=== PATIENT | female | born 1940 | race Caucasian/White ===

== ENCOUNTER 2022-11-22 06:23 | Observation (INO) | payer MEDICARE, OTHER, SELFPAY ==
[2022-11-22 06:25] VITALS: BP 168/81; PULSE 63; RESP 20; TEMP 36.5; O2SAT 96; BMI 23.3
--- NOTE | 2022-11-22 06:28 | CTR_ITS ---
PROCEDURE INFORMATION: Exam: CT Head Without Contrast Exam date and time: 11/22/2022 6:40 AM Age: 82 years old Clinical indication: Other: Unable to sit up; Additional info: Weakness TECHNIQUE: Imaging protocol: Computed tomography of the head without contrast. Radiation optimization: All CT scans at this facility use at least one of these dose optimization techniques: automated exposure control; mA and/or kV adjustment per patient size (includes targeted exams where dose is matched to clinical indication); or iterative reconstruction. REPORTING DATA: Count of CT and Cardiac NM exams in prior 12 months: This patient has received 0 known CTs and 0 known cardiac nuclear medicine studies in the 12 months prior to the current study. COMPARISON: No relevant prior studies available. RADIATION DOSE METRICS: Total DLP (mGy-cm): 1041 FINDINGS: Brain: Normal. No hemorrhage. Mild periventricular white matter changes. No mass effect. Cerebral ventricles: No ventriculomegaly. Paranasal sinuses: Visualized sinuses are unremarkable. No fluid levels. Mastoid air cells: Visualized mastoid air cells are well aerated. Bones/joints: Unremarkable. No acute fracture. Soft tissues: Unremarkable. CT/CT head wo con* [id number] IMPRESSION: No acute intracranial abnormality.
--- NOTE | 2022-11-22 06:28 | CTR_ITS ---
PROCEDURE INFORMATION: Exam: CTA Head With Contrast, Arteriography Exam date and time: 11/22/2022 6:44 AM Age: 82 years old Clinical indication: Other: Unable to sit up; Additional info: Weakness TECHNIQUE: Imaging protocol: Computed tomographic angiography of the head with contrast. Exam focused on the arteries. 3D rendering (Not supervised by radiologist): MIP and/or 3D reconstructed images were created by the technologist. Radiation optimization: All CT scans at this facility use at least one of these dose optimization techniques: automated exposure control; mA and/or kV adjustment per patient size (includes targeted exams where dose is matched to clinical indication); or iterative reconstruction. Contrast material: OMNI 350; Contrast volume: 100 ml; Contrast route: INTRAVENOUS (IV); REPORTING DATA: Count of CT and Cardiac NM exams in prior 12 months: This patient has received 0 known CTs and 0 known cardiac nuclear medicine studies in the 12 months prior to the current study. COMPARISON: CT head wo con* [id number] 11/22/2022 6:40 AM RADIATION DOSE METRICS: Total DLP (mGy-cm): 354.18 FINDINGS: ANTERIOR CIRCULATION: Right internal carotid artery: Intracranial segment is patent with no significant stenosis. No aneurysm. Right middle cerebral artery: No occlusion or significant stenosis. No aneurysm. Right anterior cerebral artery: No occlusion or significant stenosis. No aneurysm. Left internal carotid artery: Intracranial segment is patent with no significant stenosis. No aneurysm. Left middle cerebral artery: No occlusion or significant stenosis. No aneurysm. Left anterior cerebral artery: No occlusion or significant stenosis. No aneurysm. POSTERIOR CIRCULATION: Right vertebral artery: No occlusion or significant stenosis. No aneurysm. Left vertebral artery: No occlusion or significant stenosis. No aneurysm. Basilar artery: No occlusion or significant stenosis. No aneurysm. Right posterior cerebral artery: No occlusion or significant stenosis. No aneurysm. Left posterior cerebral artery: No occlusion or significant stenosis. No aneurysm. Brain: No definite mass, mass effect, or midline shift. Cerebral ventricles: No ventriculomegaly. Bones/joints: Unremarkable. No acute fracture. Soft tissues: Unremarkable. PROCEDURE INFORMATION: Exam: CTA Neck With Contrast Exam date and time: 11/22/2022 6:44 AM Age: 82 years old Clinical indication: Other: Unable to sit up; Additional info: Weakness TECHNIQUE: Imaging protocol: Computed tomographic angiography of the neck with contrast. 3D rendering (Not supervised by radiologist): MIP and/or 3D reconstructed images were created by the technologist. Radiation optimization: All CT scans at this facility use at least one of these dose optimization techniques: automated exposure control; mA and/or kV adjustment per patient size (includes targeted exams where dose is matched to clinical indication); or iterative reconstruction. Contrast material: OMNI 350; Contrast volume: 100 ml; Contrast route: INTRAVENOUS (IV); REPORTING DATA: Count of CT and Cardiac NM exams in prior 12 months: This patient has received 0 known CTs and 0 known cardiac nuclear medicine studies in the 12 months prior to the current study. COMPARISON: CT head wo con* [id number] 11/22/2022 6:40 AM RADIATION DOSE METRICS: Total DLP (mGy-cm): 354.18 FINDINGS: Right common carotid artery: No stenosis. No dissection or occlusion. Right internal carotid artery: No stenosis of the extracranial segment. No dissection or occlusion. Right external carotid artery: No occlusion or stenosis of the origin. Left common carotid artery: No stenosis. No dissection or occlusion. Left internal carotid artery: No stenosis of the extracranial segment. No dissection or occlusion. Left external carotid artery: No occlusion or stenosis of the origin. Right vertebral artery: No stenosis. No dissection or occlusion. Left vertebral artery: No stenosis. No dissection or occlusion. Soft tissues: Normal. No significant soft tissue swelling. Bones/joints: No acute fracture. CT/CT angio headneck* [id number] IMPRESSION: No large vessel stenosis or occlusion. IMPRESSION: No stenosis or occlusion. REFERENCES: NASCET CRITERIA. The degree of stenosis in the cervical segment of the internal carotid artery is based on NASCET criteria. Normal is no stenosis. Mild is less than 50% stenosis. Moderate is 50-69% stenosis. Severe is 70% to 99% stenosis. Total occlusion is no detectable patent lumen.
--- NOTE | 2022-11-22 06:28 | XRR_ITS ---
PROCEDURE INFORMATION: Exam: XR Chest Exam date and time: 11/22/2022 6:33 AM Age: 82 years old Clinical indication: Other: Weakness TECHNIQUE: Imaging protocol: Radiologic exam of the chest. Views: 1 view. COMPARISON: No relevant prior studies available. FINDINGS: Lungs: Unremarkable. No consolidation. Pleural spaces: Unremarkable. No pleural effusion. No pneumothorax. Heart/Mediastinum: Unremarkable. No cardiomegaly. Bones/joints: Unremarkable. XR/XR chest 1V portable [id number] IMPRESSION: No acute findings.
[2022-11-22 06:29] VITALS: BP 168/81; PULSE 64; RESP 12; O2SAT 96
--- NOTE | 2022-11-22 06:30 | ED_ITS ---
HPI - Weakness General: Chief complaint: Weakness Stated complaint: UNABLE TO SIT UP Time Seen by Provider: 11/22/22 06:24 Source: patient and EMS Mode of arrival: EMS Limitations: no limitations History of Present Illness: 82-year-old female states that when she woke up this morning she was feeling we ak states that she could not set up and stand. She states she got up at 2 AM to go to the bathroom feeling normal then that was her last known normal. She has no slurred speech she is able to move all extremities fine EMS states that they set her up and she just fall back down not able to walk on her own. She has no pain anywhere. Physical Exam Const: COMMON NORMALS: patient oriented x3 HENMT: COMMON NORMALS: normocephalic and atraumatic HEAD & SCALP: normocephalic and atraumatic Eye: COMMON NORMALS: Equal, round and reactive pupils present and EOMs intact bilaterally PUPIL: Yes Equal, round and reactive pupils present Neck/C-Spine: COMMON NORMALS: full ROM and supple Chest: COMMONS NORMALS: normal inspection of the chest and normal palpation of entire chest wall Resp: COMMON NORMALS: normal respiratory effort, No retractions, No use of accessory muscles and clear to auscultation bilaterally AUSCULTATION: clear to auscultation bilaterally Cardio: COMMON NORMALS: regular rate, regular rhythm and No murmurs present (Cardio) RATE: regular rate RHYTHM: regular rhythm GI: COMMON NORMALS: Normal to inspection, nondistended, normoactive bowel sounds present, Soft to palpation, non-tender and no masses PALPATION: Yes Soft to palpation Extremity: COMMON NORMALS: normal to inspection and full ROM Neuro: COMMON NORMALS: patient oriented x3 and moves all extremities CRANIAL NERVES: Yes CN normal except as noted SPEECH: speech normal MOTOR EXAM: 5/5 motor strength present throughout OTHER: Patient has 5 out of 5 strength in all of her extremities on exam but she is unable to set up and walk Psych: COMMON NORMALS: mental status grossly normal, Normal thought process present and cooperative THOUGHT PROCESS: Normal thought process present Skin: COMMON NORMALS: no rashes or lesions noted and no wounds GENERAL SKIN EXAM: no rashes or lesions noted Course Vital Signs: Vital signs: Vital Signs Temperature 98 F 11/22/22 06:59 Pulse Rate 82 11/22/22 06:59 Respiratory Rate 18 11/22/22 06:59 Blood Pressure 168/81 11/22/22 06:29 Pulse Oximetry 98 11/22/22 06:59 Oxygen Delivery Me thod Room Air 11/22/22 06:59 MDM - Weakness Medical Decision Making Patient presents for generalized weakness on her neuro exam here she has no focal neurodeficits but she is not really able to sit up or stand at all on her own she has no back pain head CT CTA are normal no signs of acute stroke but patient is too weak to walk will admit for observation at this time Medical Records I reviewed the patient's medical records. Lab Data I reviewed the patient's lab results. 11/22/22 06:32 11/22/22 06:32 Radiology Impressions Chest X-Ray 11/22/22 06:28 IMPRESSION: No acute findings. Head CT 11/22/22 06:28 IMPRESSION: No acute intracranial abnormality. Head/Neck CTA 11/22/22 06:28 IMPRESSION: No large vessel stenosis or occlusion. IMPRESSION: No stenosis or occlusion. REFERENCES: NASCET CRITERIA. The degree of stenosis in the cervical segment of the internal carotid artery is based on NASCET criteria. Normal is no stenosis. Mild is less than 50% stenosis. Moderate is 50-69% stenosis. Severe is 70% to 99% stenosis. Total occlusion is no detectable patent lumen. Laboratory Results WBC 4.04 10^3/uL (3.29-11.43) 11/22/22 06:32 RBC 4.44 10^6/uL (3.85-5.65) 11/22/22 06:32 Hgb 13.80 g/dL (11.27-16.99) 11/22/22 06:32 Hct 42.2 % (36-47) 11/22/22 06:32 MCV 95.0 fl (85-98) 11/22/22 06:32 MCH 31.1 pg (27-33) 11/22/22 06:32 MCHC 32.7 g/dL (30-55) 11/22/22 06:32 RDW 12.3 % (12.1-15.1) 11/22/22 06:32 Plt Count 226 10^3/cmm (157-399) 11/22/22 06:32 MPV 10.1 fL (7.4-10.4) 11/22/22 06:32 Neut % (Auto) 53.3 % 11/22/22 06:32 Lymph % (Auto) 31.7 % 11/22/22 06:32 [place] % (Auto) 12.1 % 11/22/22 06:32 Eos % (Auto) 2.2 % 11/22/22 06:32 Baso % (Auto) 0.5 % 11/22/22 06:32 Neut # (Auto) 2.15 10^3/uL (1.8-7.7) 11/22/22 06:32 Lymph # (Auto) 1.3 10^3/uL (0.8-4.8) 11/22/22 06:32 [place] # (Auto) 0.5 10^3/uL (0.2-0.9) 11/22/22 06:32 Eos # (Auto) 0.1 10^3/uL (0.0-0.8) 11/22/22 06:32 Baso # (Auto) 0.0 10^3/uL (0.0-0.1) 11/22/22 06:32 Nucleated RBC % (auto) 0 % 11/22/22 06:32 Nucleated RBCs # 0.0 /100WBC 11/22/22 06:32 PT 12.90 SECONDS (12.1-14.9) 11/22/22 06:32 INR 0.94 (0.8-1.2) 11/22/22 06:32 Sodium 142 mmol/L (136-145) 11/22/22 06:32 Potassium 4.4 mmol/L (3.5-5.1) 11/22/22 06:32 Chloride 106 mmol/L (98-107) 11/22/22 06:32 Carbon Dioxide 28 mmol/L (22-29) 11/22/22 06:32 Anion Gap 12.4 (5-19) 11/22/22 06:32 BUN 11 mg/dL (8-23) 11/22/22 06:32 Creatinine 0.7 mg/dL (0.5-0.9) 11/22/22 06:32 GFR Calculation Not Reportable 11/22/22 06:32 Glucose 98 mg/dL (65-115) 11/22/22 06:32 Calculated Osmolality 293 mOsm/kg (285-295) 11/22/22 06:32 Calcium 9.2 mg/dL (8.5-10.5) 11/22/22 06:32 Total Bilirubin 0.5 mg/dL (0.15-1.2) 11/22/22 06:32 AST 18 U/L (0-32) 11/22/22 06:32 ALT 11 U/L (0-33) 11/22/22 06:32 Alkaline Phosphatase 68 U/L (35-105) 11/22/22 06:32 Total Protein 7.0 g/dL (6.6-8.7) 11/22/22 06:32 Albumin 4.3 g/dL (3.5-5.2) 11/22/22 06:32 Globulin 2.7 g/dL (1.3-4.6) 11/22/22 06:32 Urine Color Colorless (Yellow) 11/22/22 07:36 Urine Appearance Clear (CLEAR) 11/22/22 07:36 Urine pH 8 (5-7) H 11/22/22 07:36 Ur Specific [place] 1.005 (1.005-1.030) 11/22/22 07:36 Urine Protein Neg (Negative) 11/22/22 07:36 Urine Glucose (UA) Norm (Normal) 11/22/22 07:36 Urine Ketones Negative (Negative) 11/22/22 07:36 Urine Blood Neg (Negative) 11/22/22 07:36 Urine Nitrate Negative (Negative) 11/22/22 07:36 Urine Bilirubin Neg (Negative) 11/22/22 07:36 Prot Sulfosalicylic Acd Negative (Negative) 11/22/22 07:36 Urine Urobilinogen Norm mg/dL (Negative) 11/22/22 07:36 Ur Leukocyte Esterase Negative (Negative) 11/22/22 07:36 Discharge Plan Discharge Patient Disposition: Placed in Observation Admit Provider: Daniel Hernández Clinical Impression: Weakness Condition: Stable Coding Level of Care Code ED [facility] [employer] for Chg Fwd NIH stroke score NIHSS Level Of Consciousness - 1a: 0 Level Of Consciousness Questions - 1b: Both Correct Level Of Consciousness Commands - 1c: Both Correct Best Gaze - 2: Normal Visual [place] - 3: No Visual Loss Facial Palsy - 4: Normal Motor Arm Right - 5: No Drift Motor Arm Left - 5: No Drift Motor Leg Right - 6: No Drift Motor Leg Left - 6: No Drift Limb Ataxia - 7: Absent Sensory - 8: Normal Best Language - 9: No Aphasia Dysarthia - 10: Normal Extinction And Inattention - 11: 0 Score Total Score: 0
[2022-11-22 06:43] LABS: Basophils % 0.5 %; Eosinophils # 0.1 10^3/uL (0.0-0.8); Eosinophils % 2.2 %; Hematocrit 42.2 % (36-47); Lymphocytes # 1.3 10^3/uL (0.8-4.8); Lymphocytes % 31.7 %; Mean Corpuscular HGB Conc 32.7 g/dL (30-55); Mean Corpuscular Hemoglobin 31.1 pg (27-33); Mean Platelet Volume 10.1 fL (7.4-10.4); Monocytes # 0.5 10^3/uL (0.2-0.9); Monocytes % 12.1 %; Neutrophils # 2.15 10^3/uL (1.8-7.7); Neutrophils % 53.3 %; Nucleated Red Blood Cells % 0 %; Platelet Count 226 10^3/cmm (157-399); Red Blood Count 4.44 10^6/uL (3.85-5.65); Red Cell Distribution Width 12.3 % (12.1-15.1); White Blood Count 4.04 10^3/uL (3.29-11.43)
[2022-11-22] MEDS: iohexol 350 mg/mL 500 mL Btl (per mL) IV (06:52)
[2022-11-22 06:57] LABS: INR 0.94 (0.8-1.2)
[2022-11-22 06:59] VITALS: PULSE 82; RESP 18; TEMP 36.6; O2SAT 98
[2022-11-22 07:08] LABS: Alanine Aminotransferase 11 U/L (0-33); Albumin Level 4.3 g/dL (3.5-5.2); Alkaline Phosphatase 68 U/L (35-105); Anion Gap 12.4 (5-19); Aspartate Amino Transferase 18 U/L (0-32); Blood Urea Nitrogen 11 mg/dL (8-23); Calcium 9.2 mg/dL (8.5-10.5); Carbon Dioxide 28 mmol/L (22-29); Chloride 106 mmol/L (98-107); Globulin 2.7 g/dL (1.3-4.6); Glucose 98 mg/dL (65-115); Osmolality Calculated 293 mOsm/kg (285-295); Potassium 4.4 mmol/L (3.5-5.1); Sodium 142 mmol/L (136-145); Total Bilirubin 0.5 mg/dL (0.15-1.2)
[2022-11-22 07:43] LABS: Add Urine Microscopic? NO; Charge for UA Resulting for Rev
--- NOTE | 2022-11-22 07:48 | ECG_ITS ---
[facility] Test Date: 2022-11-22 Pat Name: Mariella Cosme Department: Room: Gender: Female [employer] Operator: : 1940 Requested By: Tunde Ku Order Number: [id number] Reading MD: Myron John M.D. Measurements Intervals Arnett Rate: 57 P: 48 NH: 165 QRS: 2 QRSD: 88 T: 48 QT: 423 QTc: 414 Interpretive Statements SINUS BRADYCARDIA WITH OCCASIONAL SUPRAVENTRICULAR PREMATURE COMPLEXES No previous ECG available for comparison Electronically Signed On 11-22-2022 10:54:55 CDT by Myron John M.D. [id number]
[2022-11-22 07:54] LABS: Urine Appearance Clear (CLEAR); Urine Color Colorless (Yellow)
[2022-11-22 07:55] LABS: Bilirubin Urine Neg (Negative); Blood Urine Neg (Negative); Glucose Urine UA Norm (Normal); Ketones Urine Negative (Negative); Leukocyte Esterase Urine Negative (Negative); Nitrate Urine Negative (Negative); Protein Urine Neg (Negative); Specific Gravity, Urine 1.005 (1.005-1.030); Sulfosalicylic Acid Urine Negative (Negative); Urobilinogen Urine Norm (Negative); pH Urine 8 (5-7)
[2022-11-22 08:09] VITALS: BP 162/62; PULSE 68; RESP 18; TEMP 36.6; O2SAT 98
[2022-11-22 11:00] LABS: Amphetamines Screen Urine Negative (Negative); Barbiturates Screen Urine Negative (Negative); Benzodiazepines Screen Urine Negative (Negative); Cocaine Screen Urine Negative (Negative); Opiate Screen Urine Negative (Negative); PCP Screen Urine Negative (Negative); THC Screen Urine Negative (Negative)
[2022-11-22 11:16] LABS: HIV 1 & 2 Antibody Non-Reactive (Non-Reactiv); HIV 1 & 2 Antigen Non-Reactive (Non-Reactiv)
[2022-11-22 11:20] LABS: Iron 95 ug/dL (37-145); Percent Saturation 37.6 % (20-50); Thyroid Stimulating Hormone 3.21 uIU/mL (0.27-4.20); Total Iron Binding Capacity 252 mcg/dl; Unsaturated Iron Binding 157 ug/dL (112-347); Vitamin B12 640 pg/mL (232-1245)
[2022-11-22 11:22] LABS: Rapid Plasma Reagin Syphilis Nonreactive (Nonreactive)
[2022-11-22 11:29] VITALS: BP 166/79; PULSE 50; RESP 20; TEMP 36.4; O2SAT 98
--- NOTE | 2022-11-22 13:33 | PM.SDS ---
Short Stay Summary Providers Date of Admit/Discharge: 11/22/22 Attending Provider: Daniel Hernández MD Primary Care Provider: Adan Miller DO Chief Complaint: UNABLE TO SIT UP HPI History of Present Illness Mariella Cosme is a 82 year old female with no significant past medical history states she was at her baseline health when she went to bed last night. When she woke up today morning on trying to sit up from bed she was not able to and was falling on the right side again and again along with dizziness. Denies any nausea vomiting, headache, pain in her back, weakness in her legs, bowel or bladder accidents, similar episodes in the past, any recent trauma, neck pain, any changes in the diet or medications or cough, cold. Does complain of seasonal allergies and nasal congestion. She states when she was being brought to the ER via EMS she felt as if left side of her forehead was swollen and she was feeling slight heaviness and pain in her left ear. Denies any tinnitus, discharge from the ear. During hospitalization multiple blood work including CBC, CMP, vitamin B12, folate, TSH, iron panel levels were done which were all within normal limits. Urine studies were negative for UTI, urine drug screen was negative, HIV and RPR was negative. In ER CT head and CTA head and neck were done which were negative for any acute abnormalities. Patient was admitted to the floors. By the time she was seen her symptoms had resolved and she was sitting up in the recliner without having any difficulty in walking around. After the patient even before in the ER she was able to walk around but was just not able to sit up from laying position. Patient was seen by physical therapy during hospitalization who suggested home exercise program for safety. She was found to be slightly bradycardic with heart rate running in high 50s though EKG showed sinus bradycardia, likely elevated blood pressure with systolics of around 160. As per patient she does check her blood pressure at home and usually runs at 140s. She is advised to continue checking blood pressure at home and maintain a blood pressure diary. She has been discharged with home exercise program in hemodynamically stable condition with event monitor for further evaluation of bradycardia, oral meclizine as needed, Flonase and eardrops for next 1 week. She will follow-up with a primary care provider within next 1 week and with the ENT office within next 2 to 3 days. Discharge plan was discussed in detail with the patient and she verbalized understanding. Review of Systems General: Reports: 10 or more systems reviewed and unremarkable except in HPI and below Const: Denies: fever(s), chills, body aches, change in appetite, change in weight, malaise, night sweats, diaphoresis, change in sleep pattern, daytime sleepiness or snoring Eyes: Denies: change in vision, blurry vision, photophobia, eye discomfort or eye discharge ENMT: Denies: throat pain, enlarged tonsils, hoarseness, mouth pain, oral sores, dry mouth, tinnitus, nasal congestion or post nasal drip Card: Denies: chest pain, palpitations, irregular heart rhythm, edema, swelling of feet/ankles, lightheadedness, syncope, pre-syncope, dyspnea on exertion, orthopnea, leg pain with exertion or acrocyanosis Resp: Denies: dyspnea, productive cough, non-productive cough, wheezing, stridor, pain on inspiration, change in phlegm color, hemoptysis or chest congestion GI: Denies: abdominal pain, nausea, vomiting, hematemesis, coffee ground emesis, dysphagia, heartburn, diarrhea, constipation, bloating, GI cramping, change in bowel habits, pain on defecation, hematochezia or melena : Denies: flank pain, dysuria, urinary frequency, urinary urgency, urinary hesitancy, nocturia or hematuria Musc: Denies: neck pain, back pain, extremity pain, joint pain, joint swelling, joint redness, joint stiffness or limited range of motion Neuro: Denies: headache(s), numbness in extremities, weakness in extremities, sensory changes, lack of coordination, difficulty walking, frequent falls, dizziness, vertigo, confusion, Slurred speech present, difficulty communicating thoughts or seizure-like activity Psych: Denies: anxiety, depression, mood swings, panic attacks, hopelessness or irritability Endo: Denies: polyuria, polydipsia, tired all the time, cold intolerance, excessive sweating, flushing or heat intolerance Jairon/Lymph: Denies: easy bruising or easy bleeding All/Imm: Denies: tongue swelling, facial swelling or acute wheezing Home Meds/Allergies Home Medications and Allergies Allergies Allergy/AdvReac Type Severity Reaction Status Date / Time No Known Allergies Allergy Verified 11/22/22 10:22 PFSH Acute PFSH: Medical History (Updated 11/22/22 @ 13:42 by Daniel Hernández MD) No significant past medical history Surgical History (Updated 11/22/22 @ 13:42 by Daniel Hernández MD) No significant past surgical history Family History (Updated 11/22/22 @ 13:42 by Daniel Hernández MD) Other CAD (coronary artery disease) Cancer Social History (Updated 11/22/22 @ 13:44 by Daniel Hernández MD) Smoking and tobacco status: never smoked Alcohol intake: never Substance/Drug Use: never Caregiver/support person: Yes Lives independently: Yes Household members: spouse Housing: House Marital status: Vitals/I&O/Wt Last Vital Signs Temp 97.6 F 11/22/22 11:29 Pulse 50 L 11/22/22 11:29 Resp 20 H 11/22/22 11:29 BP 166/79 11/22/22 11:29 Pulse Ox 98 11/22/22 11:29 O2 Del Method Room Air 11/22/22 11:29 Weight last 48 hrs Weight 63.503 kg Physical Exam Narrative: General: No acute distress, AO x3, pleasant, anxious HEENT: PERRLA, pupils bilaterally equal and reactive Chest: Normal vesicular breath sounds, no added sounds, equal good air entry bilaterally CVS: S1-S2 regular, no murmurs, no tachycardia, no gallops, no rubs Abdomen: Soft, nontender, no organomegaly, bowel sounds present Neuro: No focal deficits, no facial deformity, AO x3, power 5/5 in all limbs HENMT: COMMON NORMALS: external ears normal and EAC's normal GENERAL EAR: Caicedo Caicedo test: does not lateralize EXTERNAL EAR: Yes external ears normal and Yes mastoids normal EXTERNAL AUDITORY CANAL: EAC's normal SSS Data Data Completed and Pending: Completed Studies During Hospitalization Category Date Time Status CT angio head nec k [CT angio headne ck* [id number]] Cat Scan 11/22/22 06:[address] head wo con* [id number] Stat Cat Scan 11/22/22 06:28 Completed XR chest 1V ebony ble [id number] Stat Exams 11/22/22 06:28 Completed Radiology Impressions Chest X-Ray 11/22/22 06:28 IMPRESSION: No acute findings. Head CT 11/22/22 06:28 IMPRESSION: No acute intracranial abnormality. Head/Neck CTA 11/22/22 06:28 IMPRESSION: No large vessel stenosis or occlusion. IMPRESSION: No stenosis or occlusion. REFERENCES: NASCET CRITERIA. The degree of stenosis in the cervical segment of the internal carotid artery is based on NASCET criteria. Normal is no stenosis. Mild is less than 50% stenosis. Moderate is 50-69% stenosis. Severe is 70% to 99% stenosis. Total occlusion is no detectable patent lumen. Laboratory Results WBC 4.04 10^3/uL (3.2 9-11.43) 11/22/22 06:32 RBC 4.44 10^6/uL (3.8 5-5.65) 11/22/22 06:32 Hgb 13.80 g/dL (11.27 -16.99) 11/22/22 06:32 Hct 42.2 % (36-47) 11/22/22 06:32 MCV 95.0 fl (85-98) 11/22/22 06:32 MCH 31.1 pg (27-33) 11/22/22 06:32 MCHC 32.7 g/dL (30-55) 11/22/22 06:32 RDW 12.3 % (12.1-15.1 ) 11/22/22 06:32 Plt Count 226 10^3/cmm (157 -399) 11/22/22 06:32 MPV 10.1 fL (7.4-10.4 ) 11/22/22 06:32 Neut % (Auto) 53.3 % 11/22/22 06:32 Lymph % (Auto) 31.7 % 11/22/22 06:32 [place] % (Auto) 12.1 % 11/22/22 06:32 Eos % (Auto) 2.2 % 11/22/22 06:32 Baso % (Auto) 0.5 % 11/22/22 06:32 Neut # (Auto) 2.15 10^3/uL (1.8 -7.7) 11/22/22 06:32 Lymph # (Auto) 1.3 10^3/uL (0.8- 4.8) 11/22/22 06:32 [place] # (Auto) 0.5 10^3/uL (0.2- 0.9) 11/22/22 06:32 Eos # (Auto) 0.1 10^3/uL (0.0- 0.8) 11/22/22 06:32 Baso # (Auto) 0.0 10^3/uL (0.0- 0.1) 11/22/22 06:32 Nucleated RBC % (a uto) 0 % 11/22/22 06:32 Nucleated RBCs # 0.0 /100WBC 11/22/22 06:32 PT 12.90 SECONDS (12 .1-14.9) 11/22/22 06:32 INR 0.94 (0.8-1.2) 11/22/22 06:32 Sodium 142 mmol/L (136-1 45) 11/22/22 06:32 Potassium 4.4 mmol/L (3.5-5 .1) 11/22/22 06:32 Chloride 106 mmol/L (98-10 7) 11/22/22 06:32 Carbon Dioxide 28 mmol/L (22-29) 11/22/22 06:32 Anion Gap 12.4 (5-19) 11/22/22 06:32 BUN 11 mg/dL (8-23) 11/22/22 06:32 Creatinine 0.7 mg/dL (0.5-0. 9) 11/22/22 06:32 GFR Calculation Not Reportable 11/22/22 06:32 Glucose 98 mg/dL (65-115) 11/22/22 06:32 Calculated Osmolal ity 293 mOsm/kg (285- 295) 11/22/22 06:32 Calcium 9.2 mg/dL (8.5-10 .5) 11/22/22 06:32 Iron 95 ug/dL (37-145) 11/22/22 06:32 Iron Cancelled 11/22/22 06:32 TIBC 252 mcg/dl 11/22/22 06:32 TIBC Cancelled 11/22/22 06:32 % Saturation 37.6 % (20-50) 11/22/22 06:32 % Saturation Cancelled 11/22/22 06:32 Unsat Iron Binding 157 ug/dL (112-34 7) 11/22/22 06:32 Unsat Iron Binding Cancelled 11/22/22 06:32 Total Bilirubin 0.5 mg/dL (0.15-1 .2) 11/22/22 06:32 AST 18 U/L (0-32) 11/22/22 06:32 ALT 11 U/L (0-33) 11/22/22 06:32 Alkaline Phosphata se 68 U/L (35-105) 11/22/22 06:32 Total Protein 7.0 g/dL (6.6-8.7 ) 11/22/22 06:32 Albumin 4.3 g/dL (3.5-5.2 ) 11/22/22 06:32 Globulin 2.7 g/dL (1.3-4.6 ) 11/22/22 06:32 Vitamin B12 640 pg/mL (232-12 45) 11/22/22 06:32 TSH 3.21 uIU/mL (0.27 -4.20) 11/22/22 06:32 Urine Color Colorless (Yello w) 11/22/22 07:36 Urine Appearance Clear (CLEAR) 11/22/22 07:36 Urine pH 8 (5-7) H 11/22/22 07:36 Ur Specific Gravit y 1.005 (1.005-1.0 30) 11/22/22 07:36 Urine Protein Neg (Negative) 11/22/22 07:36 Urine Glucose (UA) Norm (Normal) 11/22/22 07:36 Urine Ketones Negative (Negati ve) 11/22/22 07:36 Urine Blood Neg (Negative) 11/22/22 07:36 Urine Nitrate Negative (Negati ve) 11/22/22 07:36 Urine Bilirubin Neg (Negative) 11/22/22 07:36 Prot Sulfosalicyli c Acd Negative (Negati ve) 11/22/22 07:36 Urine Urobilinogen Norm mg/dL (Negat rolando) 11/22/22 07:36 Ur Leukocyte Dorothea ase Negative (Negati ve) 11/22/22 07:36 Urine Opiates Scre en Negative ng/mL (N egative) 11/22/22 07:34 Ur Barbiturates Sc reen Negative ng/mL (N egative) 11/22/22 07:34 Ur Phencyclidine S crn Negative ng/mL (N egative) 11/22/22 07:34 Ur Amphetamines Sc reen Negative ng/mL (N egative) 11/22/22 07:34 U Benzodiazepines Scrn Negative ng/mL (N egative) 11/22/22 07:34 Urine Cocaine Scre en Negative ng/mL (N egative) 11/22/22 07:34 U Marijuana (THC) Screen Negative ng/mL (N egative) 11/22/22 07:34 RPR Nonreactive (Non reactive) 11/22/22 06:32 HIV 1&2 Ab & HIV 1 Ag Non-reactive (No n-Reactiv) 11/22/22 06:32 HIV 1&2 Antibody Non-reactive (No n-Reactiv) 11/22/22 06:32 Pending at discharge Category Date Time Status Complete Blood Co unt w/Auto AM LABS Lab 11/23/22 04:00 Ordered Comprehensive Met abolic Panel AM LA BS Lab 11/23/22 04:00 Ordered Folate Level AM L ABS Lab 11/23/22 04:00 Ordered Hemoglobin A1C AM LABS Lab 11/23/22 04:00 Ordered Lipid Profile w/V LDL Routine Lab 11/23/22 04:00 Ordered MAG [Magnesium] A M LABS Lab 11/23/22 04:00 Ordered MAG [Magnesium] A M LABS Lab 11/24/22 04:00 Ordered MAG [Magnesium] A M LABS Lab 11/25/22 04:00 Ordered Discharge Plan Discharge Patient Disposition: Home Condition: Stable Prescriptions: New meclizine 50 mg tablet 50 mg PO DAILY PRN (Reason: dizziness) Qty: 10 0RF fluticasone propionate [Flonase Allergy Relief] 50 mcg/actuation spray,suspension 1 spray intranasal BID Qty: 16 0RF Rx Instructions: administer into each nostril ofloxacin 0.3 % drops 10 drp otic (ear) DAILY 7 Days Qty: 5 0RF Discharge Orders: Discharge Order (Routine); Ordered 11/22/22 Ordered By: Daniel Hernández Other Ambulatory Orders: MCT/Event Monitor 21 Days (Routine) Timeframe: 1 Week Facility: [facility] - Location: Radiology Ordered By: Daniel Hernández Referrals: Adan Miller DO [Primary Care Provider] - 7-10 days (Please call Wednesday to schedule an appointment with Dr. Miller.) Sukhjinder Flynn MD [Physician] - 1-3 days Discharge Diet: Regular Discharge Activity: Resume usual activity and Increase activity as tolerated Patient Instructions: Opioid Safety Activity Restrictions/Additional Instructions: Make sure you continue to do exercises as per home exercise program provided to you. Make sure you are walking around for next few days with a walker. Please see the ENT physician Dr. Flynn and your PCP within next 1 week. Please make an appointment with their offices tomorrow. You will need an event monitor which should be fixed for you. Cardiology office with call you with an appointment. While he has a monitor if you have any episode of dizziness, palpitations or weakness please write down the time and date. Attestations Medical Necessity Statement*: Patient has been discharged home with home exercise program and advised to follow-up with PCP and ENT office within 1 week. Event monitor has been ordered. Time Spent in Patient Care*: greater than 30 min Quality Metrics Clinical Quality Measures: [ No reported AMI, CVA or VTE this stay] Diagnoses
[2022-11-22 14:42] VITALS: BP 166/79; PULSE 50; RESP 20; TEMP 36.4; O2SAT 98
== END 2022-11-22 14:44 | disposition home or self-care (01) ==
LOC: ER 07:37 → MEDSURG 07:53
PROVIDERS: Admitting Provider Student in an Organized Health Care Education/Training Program; Emergency Provider Emergency Medicine; PCP Family Medicine; Visit Provider Student in an Organized Health Care Education/Training Program
DX: R42 Dizziness and giddiness (principal); R00.1 Bradycardia, unspecified; H92.02 Otalgia, left ear
CPT/HCPCS: 70450; 70496; 70498; 71045; 80053; 80306; 81003; 82607; 83540; 83550; 84443; 85025; 85610; 86592; 87806; 93005; 97110; 97116; 97161; 97530; 99285; G0378; Q9967